=== PATIENT | male | born 1970 | race Caucasian/White ===

== ENCOUNTER 2018-06-30 00:33 | Emergency (ER) | payer SELFPAY ==
[~2018-06-30] VITALS: Ht 165.1 cm; Wt 94.5 kg
[2018-06-30 00:48] VITALS: Ht 165.1 cm; Wt 94.5 kg
--- NOTE | 2018-06-30 03:10 | ERD ---
ER Documentation Chief Complaint Chief Complaint nasal congestion &SOB x 2 days, slight cough, chest wall pain upon coughing HPI 48-year-old male presents with complaint of shortness of breath, chest pain and cough for the past 3 days. Denies any history of chest pain or cardiac problems, wheezing, fevers, medication, history of clotting, history of immobility, history of cancer, history of recent travel or surgery. Denies past medical history. Denies allergies. Denies medications. Denies surgeries. Denies alcohol, tobacco, drug use. Up to date on vaccines. ROS All systems reviewed and are negative except as per history of present illness. Medications Home Meds Active Scripts Ibuprofen* (Motrin*) 600 Mg Tab, 600 MG PO Q6H PRN for PAIN AND OR ELEVATED TEMP, #30 TAB Prov:MERT GIMENEZ 06/30/18 Dextromethorphan Hb-Promethazine Hcl* (Promethazine DM* Syrup) 473 Ml Syrup, 5 ML PO Q6 PRN for COUGH, #4 OZ Prov:SILVIOBAKARIMERT MUSA 06/30/18 Allergies Allergies: Coded Allergies: No Known Allergy (Unverified , 06/30/18) FmHx Family History: No diabetes, No coronary disease, No other Physical Exam Vitals Vital Signs Date Temp Pulse Resp B/P (MAP) Pulse Ox O2 O2 Flow FiO2 Time Delivery Rate 06/30/18 98.7 79 18 129/86 95 Room Air 05:31 (100) 06/30/18 99.9 104 22 150/96 95 00:48 (114) Physical Exam Const: No acute distress Head: Atraumatic Eyes: Normal Conjunctiva ENT: Normal External Ears, Nose and Mouth. Neck: Full range of motion. No meningismus. Resp: Clear to auscultation bilaterally. Tenderness to palpation over left pectoral muscle. No masses erythema or ecchymosis noted. Cardio: Regular rate and rhythm, no murmurs Abd: Soft, non tender, non distended. Normal bowel sounds Skin: No petechiae or rashes Back: No midline or flank tenderness Ext: No cyanosis, or edema. Lower extremities are nonerythematous and nontender to palpation. Neur: Awake and alert Psych: Normal Mood and Affect Results 24 hrs Laboratory Tests Test 06/30/18 03:10 D-Dimer 262.98 ng/ml D-Dimer Comment Troponin I < 0.012 ng/ml Procedures/MDM EKG: Rate/Rhythm: Normal Sinus Rhythm QRS, ST, T-waves: No changes consistent w/ acute ischemia Impression: No evidence of ischemia or arrhythmia DIAGNOSTIC IMAGING REPORT Patient: WAYNE YUNG : 1970 Age: 48 Sex: M [facility]: [id number] [facility]: [id number] DOS: 06/30/18 0159 Ordering MD: MERT GIMENEZ Location: [facility] Room/Bed: PROCEDURE: CHEST - 1 VIEW CLINICAL INDICATION: 48-year-old male with shortness of breath and chest pain. TECHNIQUE: A single frontal upright portable view of the chest was performed. The images were reviewed on a PACS workstation. COMPARISON: None. FINDINGS: There is a shallow inspiration accentuating the heart size. Accounting for this, the cardiomediastinal silhouette is within normal limits. There is mild bibasilar subsegmental atelectasis. There is no evidence for focal consolidation. There is no evidence for congestive heart failure. There is no evidence for pneumothorax. The osseous structures are intact. IMPRESSION: Shallow inspiration with mild bibasilar subsegmental atelectasis. .Felipe Martinez MD, MD Date Time Electronically viewed and signed by .Felipe Martinez MD, MD on 06/30/2018 04:35 .M/ CC: MERT GIMENEZ [id number] 48-year-old male presents with complaint of shortness of breath, chest pain and cough for the past 3 days. Denies any history of chest pain or cardiac problems, wheezing, fevers, medication, history of clotting, history of immobility, history of cancer, history of recent travel or surgery. Denies past medical history. Denies allergies. Denies medications. Denies surgeries. Denies alcohol, tobacco, drug use. Up to date on vaccines. Chest x-ray, EKG, and troponin were ordered and were all normal. I have low suspicition for acute coronary syndrome, pulmonary embolism, aortic dissection, AAA, pneumothorax, esophageal rupture, pericarditis, myocarditis, or pneumonia based on EKG, imaging, labs, patient history and exam. Patient most likely strained a muscle while coughing and therefore was given ibuprofen and cough medicine.Patient discharged with strict ER precautions. Patient advised to follow up with PMD. All questions answered at discharge. Departure Diagnosis: Primary Impression: Cough Additional Impression: URI (upper respiratory infection) URI type: unspecified viral URI Qualified Codes: J06.9 - Acute upper respiratory infection, unspecified Condition: Stable MERT GIMENEZ Jun 30, 2018 03:10
[2018-06-30] MEDS ORDERED: D-ME473S2 PO (05:07)
[2018-06-30] MEDS ORDERED: IBUP-1542 PO (05:08)
[2018-06-30 05:31] VITALS: BP 129/86; PULSE 79; RESP 18
== END 2018-06-30 05:32 | disposition home or self-care (01) ==
LOC: FTE 00:33
DX: J06.9 Acute upper respiratory infection, unspecified (principal)
CPT/HCPCS: 71045; 84484; 85378; 93005